=== PATIENT | male | born 1960 ===

== ENCOUNTER 2025-10-25 11:00 | Day surgery (SDC) | payer OTHER ==
[2025-10-17 08:09] VITALS: BP 151/97
[2025-10-17 08:13] LABS: URINE APPEARANCE Clear; URINE BILIRRUBIN Negative (NEGATIVE); URINE BLOOD Negative; URINE COLOR Yellow; URINE GLUCOSE Negative (NEGATIVE); URINE KETONE Negative (NEGATIVE); URINE LEUKOCYTE Negative; URINE NITRATE Negative; URINE PROTEIN Negative (NEGATIVE); URINE UROBILINOGEN 0.2 E.U./dl
[2025-10-17 08:17] LABS: URINE BACTERIA 13.7 uL (0.0-1933); URINE EPITHELIAL CELLS 1.9 uL (0.0-38.8); URINE WBC 3.0 uL (0.0-23.2)
[2025-10-17 08:28] LABS: URINE CAST 0.00 uL (0.0-1.40); URINE RBC 1.2 uL (0.0-20.8)
[2025-10-17 08:39] LABS: BASO % 1.0 % (0.1-1.2); EOS # 0.17 (0.04-0.54); EOS % 4.4 % (0.7-7.0); LYMPH # 1.09 (1.18-3.74); LYMPH % 28.2 % (19.3-53.1); MEAN PLATELET VOLUME 10.30 fl (9.4-12.4); MONO # 0.40 (0.24-0.82); MONO % 10.3 % (4.7-12.5); NEUT # 2.16 (1.56-6.13); NEUT % 55.8 % (34.0-71.1); RED CELL DISTRIBUTION WIDTH 11.9 % (11.6-14.4)
[2025-10-17 08:48] LABS: INR 0.98
[2025-10-17 09:00] LABS: ALT/SGPT 28.0 U/L (12-78); AST/SGOT 11.0 U/L (15-37); BILIRUBIN TOTAL 0.75 mg/dL (0.3-1.2); BUN CREA RATIO 10.0 (7.0-25.0); CREATININE SERUM 1.06 mg/dL (0.70-1.30); GFR 70.79; GLOBULINA 3.9 G/DL (2.4-3.5); GLUCOSE FASTING 101.0 mg/dL (65-100); OSMOLALITY SERUM 283.0 MOSM/KG (275-295)
[2025-10-25] MEDS ORDERED: KETOROLAC TROMETHAMINE 60 MG VIAL IM ONE (11:31)
[2025-10-25] MEDS ORDERED: BUPIVACAINE HCL/MPF 0.5% 30ML VIAL ONE (11:31)
[2025-10-25] MEDS ORDERED: LIDOCAINE HCL 1%/EPINEPHRINE 20ML VIAL IJ ONE (11:31)
[2025-10-25] MEDS ORDERED: CEFAZOLIN SODIUM 1,000 MG VIAL ONE (11:37)
[2025-10-25] MEDS ORDERED: SUGAMMADEX SODIUM 200 MG/2 ML VIAL IV ONE (13:08)
== END 2025-10-25 16:10 | disposition home or self-care (01) ==
LOC: CIR.AMB 11:00
PROVIDERS: ATTEND Orthopaedic Surgery
DX: M75.121 Complete rotator cuff tear or rupture of right shoulder, not specified as traumatic (principal); M19.011 Primary osteoarthritis, right shoulder; M24.111 Other articular cartilage disorders, right shoulder; M75.21 Bicipital tendinitis, right shoulder